=== PATIENT | male | born 1965 | race Caucasian/White ===

== ENCOUNTER 2016-10-09 15:00 | Emergency (ER) | payer OTHER ==
[2016-10-09] MEDS ORDERED: BACIGUENT PACKET TP ONE (15:04)
[2016-10-09] MEDS ORDERED: Marcaine 0.5%/Epinephrine 10 ML IJ ONE (15:04)
[2016-10-09 15:09] VITALS: O2SAT 98
--- NOTE | 2016-10-09 15:10 | ERPHSYRPT ---
- History of Present Illness Time Seen by Provider: 10/09/16 15:04 Source: patient, EMS Exam Limitations: no limitations Physician History: patient clearing a hill side with a hand scythe and accidently cut his lower left leg; some bleeding; no othe rinjury or complaints; righ thanded; otherwise helathy Method of Injury: direct blow, incised Occurred: just prior to arrival, this afternoon Quality: constant, aching Severity of Pain-Max: moderate Severity of Pain-Current: mild Lower Extremities Pain: leg: left (mid lateral lower leg) Modifying Factors: Improves With: nothing Associated Symptoms: none Allergies/Adverse Reactions: erythromycin base Allergy (Verified 10/09/16 15:09) Home Medications: Duloxetine HCl 30 mg [Cymbalta 30 MG Capsule] 30 mg PO DAILY 10/09/16 [ History] - Review of Systems Constitutional: No Symptoms Eyes: No Symptoms Ears, Nose, & Throat: No Symptoms Respiratory: No Cough, No Dyspnea, No Wheezing Cardiac: No Chest Pain, No Palpitations, No Syncope Abdominal/Gastrointestinal: No Abdominal Pain, No Nausea, No Vomiting, No Diarrhea Genitourinary Symptoms: No Symptoms Musculoskeletal: Injury (laceratio mid lateral left lower leg), No Back Pain, No Neck Pain, No Fall Skin: Other (5 cm laceration left lower leg), No Rash, No Skin Lesions Neurological: No Symptoms Psychological: No Symptoms Endocrine: No Symptoms Hematologic/Lymphatic: No Symptoms Immunological/Allergic: No Symptoms - Past Medical History Pertinent Past Medical History: Yes Cardiac History: Coronary Artery Disease - Past Surgical History Past Surgical History: Yes Cardiac: Cardiac Stent - Social History Smoking Status: Current every day smoker Exposure to second hand smoke: Yes Alcohol Use: Socially Drug Use: none Patient Lives Alone: No Significant Family History: no pertinent family hx - Nursing Vital Signs Nursing Vital Signs: Initial Vital Signs Temperature 97.4 F 10/09/16 15:02 Pulse Rate 62 10/09/16 15:02 Respiratory Rate 16 10/09/16 15:02 Blood Pressure 136/87 10/09/16 15:02 O2 Sat by Pulse Oximetry 98 10/09/16 15:02 Pain Scale Pain Intensity 6 - Physical Exam General Appearance: mild distress, alert, thin Eyes, Ears, Nose, Throat Exam: normal ENT inspection, TMs normal, moist mucous membranes Neck Exam: normal inspection, non-tender, supple, full range of motion Cardiovascular/Respiratory Exam: chest non-tender, normal breath sounds, regular rate/rhythm, heart sounds normal, no JVD, no M/R/G, no respiratory distress Gastrointestinal/Abdominal Exam: non-tender, soft, no organomegaly Back Exam: normal inspection, normal range of motion, No CVA tenderness, No vertebral tenderness, No rash Hips Exam: bilateral: non-tender, normal inspection, normal range of motion, no evidence of injury Legs Exam: right leg: non-tender, normal inspection, no evidence of injury, left leg: pain (mid left), soft tissue tenderness (mid left), other (5 cm curvalinear laceration mid lateral left lower leg), bilateral leg: normal range of motion Knees Exam: bilateral knee: non-tender, normal inspection, normal range of motion, no evidence of injury Ankle Exam: bilateral ankle: non-tender, normal inspection, normal range of motion, no evidence of injury Foot Exam: bilateral foot: non-tender, normal inspection, normal range of motion , no evidence of injury DTR - Lower Extremities Exam: knee (R): 4+, knee (L): 4+ Neuro/Tendon Exam: normal sensation, normal motor functions, normal tendon functions, responds to pain Mental Status Exam: alert, oriented x 3, cooperative Skin Exam: normal color, warm, dry, laceration (5 cm full thicknees curvalinear laceration mid lateral left leg; no FB seen; minimal bleeding), No rash Procedures - Laceration/Wound Repair Left Lower Lateral Other Wound Location: Left, lower leg Wound Length (cm): 5 Wound's Depth, Shape: linear, into subcut Wound Explored: no foreign body noted Irrigated: Yes Hibiclens Prep: Yes Anesthesia: marcaine 0.5 Volume Anesthetic (ccs): 5 Wound Repaired With: [place] Number of Sutures: 6 Layer Closure?: No Sterile Dressing Applied?: Yes Splint Applied?: No Sling Applied?: No - Course Nursing assessment & vital signs reviewed: Yes Ordered Tests: Active Orders 24 hr Category Date Time Status Prepare for Sutures STAT Care 10/09/16 15:04 Active Sutures STAT Care 10/09/16 15:05 Active Wound Care STAT Care 10/09/16 15:04 Active Medication Summary Discontinued Medications Generic Name Dose Route Start Last Admin Trade Name Freq PRN Reason Stop Dose Admin Bacitracin 0.9 gm 10/09/16 15:04 Baciguent Packet TP 10/09/16 15:05 STAT ONE Bupivacaine HCl/Epinephrine Bitart 5 ml 10/09/16 15:04 Marcaine 0.5%/Epinephrine 10 Ml IJ 10/09/16 15:05 STAT ONE Bupivacaine HCl/Epinephrine Bitart Confirm 10/09/16 15:12 Marcaine 0.5%/Epinephrine 10 Ml Administered 10/09/16 15:13 Dose 10 ml .ROUTE .Virtualmin ONE - Progress Progress: improved (after repair), re-examined (after suture) Progress Note: 10/09/16 15:10 will use local; clean; explore and repair 10/09/16 15:23 patient tolerated repair well'; dressing applied; instructions given Counseled pt/family regarding: diagnosis, need for follow-up, smoking cessation - Departure Time of Disposition: 15:23 Departure Disposition: Home Clinical Impression: Laceration of left lower extremity Condition: Good Critical Care Time: No Instructions: Care for a Laceration After Repair Additional Instructions: stapel removal 7-10 days; clean; motrin Follow-up with family doctor as directed. Call for appointment. Return if any problems. If you smoke please stop. Call or follow up with your family doctor for assistance if you need it to stop. Please wear your seatbelt when driving. Have a nice day. Thank you for allowing us to participate in your care today. :o) Dr Rodo Palacio
[2016-10-09] MEDS ORDERED: Marcaine 0.5%/Epinephrine 10 ML ONE (15:12)
[2016-10-09 15:56] VITALS: BP 114/78; PULSE 78
[2016-10-09] MEDS ORDERED: BACIGUENT PACKET ONE (19:32)
== END 2016-10-09 15:57 | disposition home or self-care (01) ==
LOC: ED 15:00
PROC: 0HQLXZZ Repair Left Lower Leg Skin, External Approach (ICD-10-PCS; principal; 2016-10-09)
DX: S81.812A Laceration without foreign body, left lower leg, initial encounter (principal); W27.8XXA Contact with other nonpowered hand tool, initial encounter; Y93.H2 Activity, gardening and landscaping
CPT/HCPCS: 12002; 99283; A9270-GY